=== PATIENT | female | born 1990 | race Caucasian/White ===

== ENCOUNTER 2016-08-09 05:05 | Emergency (ER) | payer BC ==
[~2016-08-09] VITALS: Ht 149.9 cm; Wt 49.9 kg
[~2016-08-09 05:05] MED LIST: ASPI1TAB PO; Baclofen PO; CLON0.1T14 PO; DICY20TA28 PO; DIPH28.33 TP; DIPH50CA37 PO; Gabapentin PO; HYDR-3895 PO; HYDR26CR TP; Ibuprofen PO; LAMO25TA PO; MIRT15TA7 PO; TRAZ-144 PO
--- NOTE | 2016-08-09 05:30 | NUR ---
Pt ambulated to room with steady gait. Pt c/o bilat flank pain for 2 days. Pt resting in position of comfort for self. Awaiting further eval.
[2016-08-09] MEDS ORDERED: [UNRECOGNIZED DRUG - REMARK] PO (05:36)
--- NOTE | 2016-08-09 06:35 | NUR ---
UA collected and sent
[2016-08-09 06:38] LABS: *BILIRUBIN,URIN NEGATIVE (NEGATIVE); *BLOOD, URINE Trace-intact (NEGATIVE); *KETONES,URINE NEGATIVE (NEGATIVE); *PROTEIN,URINE 2+ (NEGATIVE); LEUKOCYTE ESTERASE ,URINE 2+ (NEGATIVE); NITRITE, URINE NEGATIVE (NEGATIVE); PH,URINE 6.5 (5.0-8.0); UGLUCOSE NEGATIVE (NEGATIVE)
[2016-08-09 06:39] LABS: *URINE HCG, QUAL NEGATIVE (NEGATIVE)
[2016-08-09 06:49] LABS: *CLARITY,URINE HAZY (CLEAR); *COLOR,URINE YELLOW (YELLOW)
[2016-08-09 06:50] LABS: BACTERIA,URINE MODERATE /HPF (NONE SEEN); MUCUS,URINE MANY /LPF (0-FEW); SQUAMOUS EPITHELIAL CELL,UR MODERATE /HPF (NONE SEEN); WBC,URINE TNTC /HPF (0-3)
--- NOTE | 2016-08-09 07:20 | NUR ---
Pt stable for discharge per MD. Pt given ACI. Pt verbalized understanding of dc instructions. Pt ambulated out of er with steady gait.
[2016-08-09 07:22] VITALS: BP 130/92
== END 2016-08-09 07:22 | disposition home or self-care (01) ==
LOC: ER 05:07
DX: N12 Tubulo-interstitial nephritis, not specified as acute or chronic (principal); F19.10 Other psychoactive substance abuse, uncomplicated; F17.200 Nicotine dependence, unspecified, uncomplicated
CPT/HCPCS: 84703; 87077; 87086; A4663

== ENCOUNTER 2016-08-20 18:58 | Inpatient (IN) | payer BC, OTHER ==
[~2016-08-20 18:58] MED LIST changes: -ASPI1TAB PO; -Baclofen PO; -CLON0.1T14 PO; -DICY20TA28 PO; -DIPH28.33 TP; -DIPH50CA37 PO; -Gabapentin PO; -HYDR-3895 PO; -HYDR26CR TP; -Ibuprofen PO; -LAMO25TA PO; -MIRT15TA7 PO; -TRAZ-144 PO; +[UNRECOGNIZED DRUG - REMARK] PO
== END 2016-08-21 01:16 | disposition home or self-care (01) | DRG 897 ==
LOC: SRC 08-21 00:13
PROVIDERS: ADMIT Internal Medicine; ATTEND Internal Medicine
DX: F19.20 Other psychoactive substance dependence, uncomplicated (principal)